=== PATIENT | female | born 1970 | race Caucasian/White ===

== ENCOUNTER 2018-01-01 14:33 | Emergency (ER) | payer MEDICAID, OTHER ==
[~2018-01-01] VITALS: Ht 172.7 cm; Wt 74.8 kg
[2018-01-01] MEDS ORDERED: ACTIVATED CHARCOAL 50 GM/240 ML SOL PO ONE (15:00)
[2018-01-01 15:34] LABS: Basophils # (auto) 0 uL; Basophils % (auto) 0.3 % (0.0-2.0); Eosinophils # (auto) 0.1 uL; Eosinophils % (auto) 1.7 % (0.0-7.0); Hematocrit 42.7 % (36.0-46.0); Hemoglobin 14.6 g/dL (12.2-16.2); Lymphocytes # (auto) 1.9 uL; Lymphocytes % (auto) 27.3 % (10.0-50.0); Mean Corpuscular Hgb Conc. 34.2 g/dL (32.0-36.0); Mean Corpuscular Volume 93.6 fL (80.0-100.0); Monocytes # (auto) 0.4 uL; Monocytes % (auto) 5.7 % (0.0-12.0); Neutrophils # (auto) 4.4 uL; Nucleated Red Blood Cells % 0.1 %; Platelet Count (auto) 301 10^3/uL (140-450); Red Blood Cells 4.56 10^6/uL (4.0-5.20); White Blood Cell 6.8 10^3/uL (4.4-10.8)
[2018-01-01 16:02] LABS: BUN/Creatinine Ratio 11.5; Bilirubin, Total 0.4 mg/dL (0.2-1.0); Calcium 8.5 mg/dL (8.5-10.1); Potassium 3.6 mmol/L (3.5-5.1); Total Protein 8.1 g/dL (6.4-8.2)
[2018-01-01 16:13] LABS: Acetaminophen < 2.0 ug/mL (10-30); Salicylate < 1.7 mg/dL (2.8-20.0)
[2018-01-01] MEDS ORDERED: SODIUM CHLORIDE 0.9% 1,000 ML IV ONE (16:13)
[2018-01-01 17:23] LABS: Urine Bacteria FEW /hpf (None Seen); Urine Blood Negative /uL (Negative); Urine Specific Gravity 1.004 (1.001-1.035); Urine WBC <1 /hpf (0 - 5)
[2018-01-01] MEDS: MAGNESIUM SULFATE 1GM/100ML 100 ML IV SCH ×4 (17:25→20:48)
[2018-01-01 17:33] LABS: Amphetamine Screen, Urine NEGATIVE (NEGATIVE); Barbiturate Scree,Urine NEGATIVE (NEGATIVE); Benzodiazephine Screen, Urine NEGATIVE (NEGATIVE); Cannabinoid Screen, Urine NEGATIVE (NEGATIVE); Cocaine Screen, Urine NEGATIVE (NEGATIVE); Opiate Scree,Urine NEGATIVE (NEGATIVE); Phencyclidine Screen, Urine NEGATIVE (NEGATIVE)
[2018-01-01 20:15] LABS: Albumin 3.7 g/dL (3.4-5.0); BUN/Creatinine Ratio 10.8; Bilirubin, Total 0.3 mg/dL (0.2-1.0); Calcium 8.1 mg/dL (8.5-10.1); Potassium 3.8 mmol/L (3.5-5.1); Total Protein 7.9 g/dL (6.4-8.2)
[2018-01-01] MEDS ORDERED: cloNIDine HCL 0.1 MG TAB PO ONE (20:45)
[2018-01-01] MEDS ORDERED: cloNIDine 0.1 mg/24hr 7 DAY PATCH TD ONE (20:45)
[2018-01-03] MEDS ORDERED: SERTRALINE HCL 50 MG TAB PO ONE (09:45)
[2018-01-04] MEDS ORDERED: cloNIDine HCL 0.1 MG TAB PO ONE (00:30)
[2018-01-04 00:31] VITALS: BP 155/95
[2018-01-04] MEDS ORDERED: SERTRALINE HCL 50 MG TAB PO SCH (06:00)
== END 2018-01-04 00:42 | disposition short-term general hospital (02) ==
LOC: EDBD 14:33 → ER 14:33
DX: T48.202A Poisoning by unspecified drugs acting on muscles, intentional self-harm, initial encounter (principal); F32.9 Major depressive disorder, single episode, unspecified; F41.9 Anxiety disorder, unspecified; I10 Essential (primary) hypertension; Z90.710 Acquired absence of both cervix and uterus; Y92.89 Other specified places as the place of occurrence of the external cause
CPT/HCPCS: 36415; 71046; 80053; 80307; 80329; 81001; 82248; 83735; 85025; 93005; 96365; 96366; 99285; J3475; J7030

== ENCOUNTER 2021-02-13 16:29 | Emergency (ER) | payer MEDICAID ==
[~2021-02-13] VITALS: Ht 165.1 cm; Wt 69.4 kg
[2021-02-13 17:07] VITALS: BP 145/101
== END 2021-02-13 17:44 | disposition left against medical advice (07) ==
LOC: EDBD 16:29 → ER 16:29
DX: R45.851 Suicidal ideations (principal); F32.9 Major depressive disorder, single episode, unspecified; I10 Essential (primary) hypertension; Z90.710 Acquired absence of both cervix and uterus

== ENCOUNTER 2022-04-01 13:49 | Emergency (ER) | payer MEDICAID ==
[~2022-04-01] VITALS: Ht 167.6 cm; Wt 70.3 kg
[2022-04-01 13:57] VITALS: BP 136/94
[2022-04-01 15:04] LABS: Basophils # (auto) 0 10 ^3/uL (0-0.2); Eosinophils # (auto) 0.1 10 ^3/uL (0-0.8); Eosinophils % (auto) 1.9 % (0.0-7.0); Hemoglobin 14.6 g/dL (12.2-16.2); Monocytes # (auto) 0.6 10 ^3/uL (0-1.3); White Blood Cell 5.2 10^3/uL (4.4-10.8)
[2022-04-01 15:06] LABS: Basophils % (auto) 0.1 % (0.0-2.0); Hematocrit 43.1 % (36.0-46.0); Lymphocytes # (auto) 1.5 10 ^3/uL (0.4-5.4); Lymphocytes % (auto) 28.2 % (10.0-50.0); Mean Corpuscular Hgb Conc. 33.8 g/dL (32.0-36.0); Mean Corpuscular Volume 103.5 fL (80.0-100.0); Monocytes % (auto) 11.9 % (0.0-12.0); Neutrophils % (auto) 57.9 % (37.0-80.0); Nucleated Red Blood Cells % 0.2 %; Red Blood Cells 4.16 10^6/uL (4.0-5.20); Red Cell Distribution Width 13.6 % (11.8-14.3)
[2022-04-01 15:20] LABS: Albumin 3.3 g/dL (3.4-5.0); Potassium 3.1 mmol/L (3.5-5.1)
[2022-04-01 15:23] LABS: BUN/Creatinine Ratio 10.8; Bilirubin, Total 0.6 mg/dL (0.2-1.0); Total Protein 6.7 g/dL (6.4-8.2)
== END 2022-04-01 16:10 | disposition left against medical advice (07) ==
LOC: EDBD 13:49 → ER 13:49
DX: R11.2 Nausea with vomiting, unspecified (principal); R07.89 Other chest pain; Z53.21 Procedure and treatment not carried out due to patient leaving prior to being seen by health care provider
CPT/HCPCS: 36415; 80053; 85025; 93005

== ENCOUNTER 2022-07-08 13:17 | Emergency (ER) | payer MEDICAID ==
[~2022-07-08] VITALS: Ht 167.6 cm; Wt 75.4 kg
[2022-07-08 14:10] VITALS: BP 102/78
[2022-07-08] MEDS ORDERED: ACET-1158 PO (18:52)
[2022-07-09] MEDS ORDERED: HYDR-4902 PO (07:47)
== END 2022-07-08 18:55 | disposition home or self-care (01) ==
LOC: ER 13:17
DX: S22.31XA Fracture of one rib, right side, initial encounter for closed fracture (principal); S80.02XA Contusion of left knee, initial encounter; S80.01XA Contusion of right knee, initial encounter; W18.39XA Other fall on same level, initial encounter; Y93.89 Activity, other specified; Y92.89 Other specified places as the place of occurrence of the external cause; Y99.8 Other external cause status
CPT/HCPCS: 71101

== ENCOUNTER 2022-08-15 17:48 | Emergency (ER) | payer MEDICAID ==
[~2022-08-15] VITALS: Ht 165.1 cm; Wt 70.4 kg
[~2022-08-15 17:48] MED LIST: ACET-1158 PO; HYDR-4902 PO
[2022-08-15 18:17] VITALS: BP 146/90
[2022-08-15 19:00] LABS: Basophils # (auto) 0 10 ^3/uL (0-0.2); Basophils % (auto) 0.3 % (0.0-2.0); Eosinophils # (auto) 0.1 10 ^3/uL (0-0.8); Eosinophils % (auto) 1.4 % (0.0-7.0); Hematocrit 46.3 % (36.0-46.0); Hemoglobin 16.7 g/dL (12.2-16.2); Lymphocytes # (auto) 1.6 10 ^3/uL (0.4-5.4); Lymphocytes % (auto) 32.5 % (10.0-50.0); Mean Corpuscular Hemoglobin 37.7 pg (28.0-32.0); Mean Corpuscular Volume 104.6 fL (80.0-100.0); Monocytes # (auto) 0.3 10 ^3/uL (0-1.3); Monocytes % (auto) 6.5 % (0.0-12.0); Neutrophils % (auto) 59.3 % (37.0-80.0); Nucleated Red Blood Cells % 0.1 %; Red Blood Cells 4.43 10^6/uL (4.0-5.20); Red Cell Distribution Width 12.7 % (11.8-14.3)
[2022-08-15 19:23] LABS: Albumin 4.3 g/dL (3.4-5.0); BUN/Creatinine Ratio 11.4; Calcium 8.9 mg/dL (8.5-10.1); Potassium 3.7 mmol/L (3.5-5.1)
[2022-08-15 19:24] LABS: Salicylate < 1.7 mg/dL (2.8-20.0)
[2022-08-15 19:25] LABS: Acetaminophen < 2.0 ug/mL (10-30)
== END 2022-08-16 00:39 | disposition left against medical advice (07) ==
LOC: ER 17:48 → EDBD 17:48 → ER 08-16 00:39
DX: F10.10 Alcohol abuse, uncomplicated (principal); R41.82 Altered mental status, unspecified; I10 Essential (primary) hypertension; Z90.710 Acquired absence of both cervix and uterus
CPT/HCPCS: 36415; 80053; 80320; 80329; 85025

== ENCOUNTER 2022-09-30 21:38 | Emergency (ER) | payer MEDICAID ==
[~2022-09-30] VITALS: Ht 162.6 cm; Wt 72.5 kg
[2022-09-30 22:00] VITALS: BP 115/80
[2022-09-30 22:18] LABS: Basophils # (auto) 0.1 10 ^3/uL (0-0.2); Basophils % (auto) 1.3 % (0.0-2.0); Eosinophils # (auto) 0.1 10 ^3/uL (0-0.8); Eosinophils % (auto) 2.3 % (0.0-7.0); Hematocrit 40.1 % (36.0-46.0); Hemoglobin 13.8 g/dL (12.2-16.2); Lymphocytes # (auto) 1.9 10 ^3/uL (0.4-5.4); Lymphocytes % (auto) 45.9 % (10.0-50.0); Mean Corpuscular Hemoglobin 34.8 pg (28.0-32.0); Mean Corpuscular Hgb Conc. 34.4 g/dL (32.0-36.0); Monocytes # (auto) 0.4 10 ^3/uL (0-1.3); Monocytes % (auto) 8.8 % (0.0-12.0); Neutrophils # (auto) 1.8 10 ^3/uL (1.6-8.6); Neutrophils % (auto) 41.7 % (37.0-80.0); Nucleated Red Blood Cells % 0.2 %; Red Blood Cells 3.97 10^6/uL (4.0-5.20); Red Cell Distribution Width 13.5 % (11.8-14.3); White Blood Cell 4.2 10^3/uL (4.4-10.8)
[2022-09-30 22:34] LABS: Calcium 8.3 mg/dL (8.5-10.1); Magnesium 2.2 mg/dL (1.6-2.6); Potassium 3.2 mmol/L (3.5-5.1)
[2022-09-30 22:36] LABS: Acetaminophen < 2.0 ug/mL (10-30); Salicylate < 1.7 mg/dL (2.8-20.0)
[2022-09-30 22:37] LABS: Albumin 3.5 g/dL (3.4-5.0); BUN/Creatinine Ratio 10.3 (10.0-20.0); Bilirubin, Total 0.4 mg/dL (0.2-1.0); Total Protein 7.2 g/dL (6.4-8.2)
[2022-09-30] MEDS ORDERED: POTASSIUM EFFERVESENT TAB 25 MEQ PO ONE (23:00)
== END 2022-10-01 00:36 | disposition left against medical advice (07) ==
LOC: EDBD 21:38 → ER 21:38
DX: F10.129 Alcohol abuse with intoxication, unspecified (principal); D75.89 Other specified diseases of blood and blood-forming organs; E87.6 Hypokalemia; E87.8 Other disorders of electrolyte and fluid balance, not elsewhere classified; I10 Essential (primary) hypertension; Z90.710 Acquired absence of both cervix and uterus; Z79.899 Other long term (current) drug therapy; Y90.8 Blood alcohol level of 240 mg/100 ml or more
CPT/HCPCS: 36415; 80053; 80320; 80329; 83735; 85025

== ENCOUNTER 2023-10-29 09:32 | Emergency (ER) | payer MEDICAID, OTHER ==
[~2023-10-29] VITALS: Ht 165.1 cm; Wt 68.2 kg
[~2023-10-29 09:32] MED LIST changes: -ACET-1158 PO; +ACET500T58 PO
[2023-10-29 09:48] VITALS: PULSE 86; RESP 19; O2SAT 92
[2023-10-29] MEDS: SODIUM CHLORIDE 0.9% 1,000 ML IV ONE ×2 (10:37→11:52)
[2023-10-29] MEDS: THIAMINE 100mg/ml INJ (200mg/2ml VIAL) IV ONE (10:52)
[2023-10-29 12:05] LABS: Urine Bacteria FEW /hpf (None Seen); Urine Blood Negative /uL (Negative); Urine Clarity Clear (Clear); Urine Color Colorless (Yellow); Urine Protein, UAD Negative (Negative); Urine Specific Gravity 1.003 (1.001-1.035); Urine Urobilinogen Normal (Negative); Urine WBC 1 /hpf (0 - 5)
[2023-10-29 14:00] VITALS: BP 121/74; PULSE 94; RESP 19; TEMP 97.5; O2SAT 95
== END 2023-10-29 19:57 | disposition home or self-care (01) ==
LOC: ER 09:32 → EDUNIT# 09:32 → EDBD 09:32 → ER 19:50
DX: R45.851 Suicidal ideations (principal); F10.10 Alcohol abuse, uncomplicated; F19.10 Other psychoactive substance abuse, uncomplicated; N39.0 Urinary tract infection, site not specified; F32.A Depression, unspecified; Y90.8 Blood alcohol level of 240 mg/100 ml or more
CPT/HCPCS: 36415; 80320; 81001; 96361; 96374; 99283; J3411; J7030